=== PATIENT | male | born 1940 ===

== ENCOUNTER 2017-03-11 07:07 | Day surgery (SDC) | payer OTHER ==
[2017-03-11] MEDS ORDERED: Lactated Ringer's 500 ML IV ONE (08:06)
[2017-03-11 08:35] VITALS: TEMP 97; O2SAT 100
[2017-03-11 09:18] VITALS: BP 110/60; PULSE 58; RESP 18
== END 2017-03-11 13:53 | disposition home or self-care (01) ==
LOC: H.ENDO 07:07
PROVIDERS: ATTEND Internal Medicine Gastroenterology
DX: Z12.11 Encounter for screening for malignant neoplasm of colon (principal); K64.8 Other hemorrhoids